=== PATIENT | male | born 1965 | race Two or more races ===

== ENCOUNTER 2016-07-17 21:20 | Inpatient (IN) | payer BC ==
[~2016-07-17] VITALS: Ht 167.6 cm; Wt 85.2 kg
[2016-07-17 21:30] VITALS: BP 140/86
[2016-07-17 22:00] VITALS: BP 140/86
[2016-07-17] MEDS ORDERED: MORPHINE SULF INJ 2 MG/ML SYRINGE 1ML IV PRN ×2 (23:30)
[2016-07-17] MEDS ORDERED: NITROGLYCERIN 0.4 MG SL TAB SL PRN ×2 (23:30)
[2016-07-18] MEDS ORDERED: RAMI10CA38 PO (01:02)
[2016-07-18] MEDS ORDERED: LEVO100T83 PO (01:02)
[2016-07-18] MEDS ORDERED: APIX5TAB PO (01:02)
[2016-07-18] MEDS ORDERED: ATOR1TAB PO (01:02)
[2016-07-18] MEDS ORDERED: GABA100C PO (01:02)
[2016-07-18] MEDS ORDERED: CHOL20009 PO (01:02)
[2016-07-18] MEDS ORDERED: CARV6.25 PO (01:02)
[2016-07-18] MEDS ORDERED: PANT40TA2 PO (01:02)
[2016-07-18] MEDS ORDERED: CYAN100T7 PO (01:02)
[2016-07-18] MEDS ORDERED: ASPI-231 PO (01:02)
[2016-07-18] MEDS ORDERED: GLIP-115 PO (01:02)
[2016-07-18] MEDS ORDERED: AMIO200T33 PO (01:02)
[2016-07-18 01:10] LABS: Albumin 2.8 g/dL (3.4-5.0); BUN/Creatinine Ratio 13.9; Bilirubin, Total 0.3 mg/dL (0.2-1.0); Calcium 7.9 mg/dL (8.5-10.1); Potassium 4.5 mmol/L (3.5-5.1)
[2016-07-18 01:13] LABS: Basophils # (auto) 0 uL; Basophils % (auto) 0.3 % (0.0-2.0); Eosinophils # (auto) 0.4 uL; Eosinophils % (auto) 3.3 % (0.0-7.0); Hematocrit 33.4 % (41.0-53.0); Hemoglobin 10.9 g/dL (13.5-17.5); Lymphocytes # (auto) 2.7 uL; Lymphocytes % (auto) 23.7 % (10.0-50.0); Mean Corpuscular Hemoglobin 28.5 pg (28.0-32.0); Mean Corpuscular Hgb Conc. 32.7 g/dL (32.0-36.0); Mean Corpuscular Volume 87.4 fL (80.0-100.0); Mean Platelet Volume 9.5 fL (7.4-10.4); Monocytes # (auto) 1.2 uL; Monocytes % (auto) 10.6 % (0.0-12.0); Neutrophils # (auto) 6.9 uL; Neutrophils % (auto) 62.1 % (37.0-80.0); Platelet Count (auto) 321 10^3/uL (140-450); Red Cell Distribution Width 15.7 % (11.6-16.0); White Blood Cell 11.2 10^3/uL (4.4-10.8)
[2016-07-18 01:23] LABS: INR 1.37 (0.9-1.15); Prothrombin Time 14.8 sec (9.37-12.3)
[2016-07-18 03:55] LABS: Partial Thromboplastin Time 158.5 sec (22.64-33.71)
[2016-07-18 05:00] VITALS: BP 142/89
[2016-07-18] MEDS: SODIUM CHLORIDE 0.9% 1,000 ML IV SCH ×2 (05:47→13:05)
[2016-07-18] MEDS: SODIUM CHLOR 0.9% PF (SALINE LOCK) 10ML VIAL IV SCH ×3 (05:48→21:49)
[2016-07-18] MEDS ORDERED: DEXTROSE (50%) 50ML SYRG IV PRN (06:30)
[2016-07-18] MEDS: LEVOTHYROXINE SODIUM 100 MCG TAB PO SCH (07:21)
[2016-07-18 09:00] VITALS: BP 128/66
[2016-07-18] MEDS ORDERED: CARVEDILOL 3.125 MG TAB PO SCH (10:00)
[2016-07-18] MEDS: AMIODARONE HCL 200 MG TAB PO SCH (10:14)
[2016-07-18] MEDS ORDERED: ENOXAPARIN SOD 40 MG/0.4 ML SYRINGE SC ONE ×2 (10:30→11:00)
[2016-07-18] MEDS ORDERED: RAMIPRIL 10 MG CAP PO ONE (11:00)
[2016-07-18] MEDS ORDERED: ASPirin 81 mg TAB PO ONE (11:00)
[2016-07-18] MEDS ORDERED: PANTOPRAZOLE 40 MG TAB PO ONE (11:00)
[2016-07-18] MEDS: ACCU-CHEK COMFORT CURVE STRIP VI SCH ×3 (11:29→23:45)
[2016-07-18] MEDS: InsuLIN REG 1unit/0.01ml Soln (100units/ml) SC SCH ×3 (11:29→23:46)
[2016-07-18 12:29] LABS: Urine RBC None Seen /hpf (0 - 3)
[2016-07-18 12:38] LABS: Urine Bilirubin Negative (Negative); Urine Blood Negative /uL (Negative); Urine Color Yellow (Yellow); Urine Glucose Normal (Normal); Urine Ketone Negative (Negative); Urine Nitrite Negative (Negative); Urine Squamous Epithelial Cell FEW /hpf (<5); Urine Urobilinogen Normal (Negative)
[2016-07-18 13:00] VITALS: BP 145/98
[2016-07-18] MEDS ORDERED: IOHEXOL 350 MG/ML 100ML IJ ONE (15:22)
[2016-07-18] MEDS ORDERED: LIDOCAINE 2%HCL (LOCAL ANESTH.) INJ 20ML MDV ONE (15:23)
[2016-07-18] MEDS ORDERED: fentaNYL CITRATE 100 MCG/2 ML VL ONE (16:19)
[2016-07-18] MEDS ORDERED: MIDAZOLAM HCL 1MG/1ML-2 ML VIAL ONE (16:19)
[2016-07-18] MEDS ORDERED: ANGIOMAX 250 MG VIAL IV ONE (16:50)
[2016-07-18] MEDS ORDERED: CLOPIDOGREL 300 MG TAB ONE (17:45)
[2016-07-18] MEDS ORDERED: CLOPIDOGREL 300 MG TAB PO ONE (18:00)
[2016-07-18] MEDS ORDERED: LORazepam 0.5 MG TAB PO PRN (18:15)
[2016-07-18] MEDS ORDERED: ZOLPIDEM TARTRATE 5 MG TAB PO PRN (18:15)
[2016-07-18] MEDS ORDERED: ACETAMINOPHEN 500 MG TAB PO PRN (18:15)
[2016-07-18] MEDS ORDERED: MORPHINE SULF INJ 2 MG/ML SYRINGE 1ML IV PRN (18:15)
[2016-07-18] MEDS ORDERED: ONDANSETRON HCL 4 MG/2 ML VIAL IV PRN (18:15)
[2016-07-18 20:00] VITALS: BP 129/70
[2016-07-18] MEDS: HYDROcodone-ACET 5/325MG TAB PO PRN (20:42)
[2016-07-18] MEDS: CARVEDILOL 3.125 MG TAB PO SCH (21:43)
[2016-07-18] MEDS: glipiZIDE 5 MG TAB PO SCH (21:45)
[2016-07-18 22:00] VITALS: BP 129/70
[2016-07-18] MEDS ORDERED: CARVEDILOL PO SCH (22:00)
[2016-07-18] MEDS ORDERED: ATORVASTATIN 20 MG TAB PO SCH ×2 (22:00)
[2016-07-19] MEDS: SODIUM CHLORIDE 0.9% 1,000 ML IV SCH (02:25)
[2016-07-19 05:30] VITALS: BP 112/70
[2016-07-19 05:43] LABS: Basophils # (auto) 0 uL; Basophils % (auto) 0.3 % (0.0-2.0); Eosinophils # (auto) 0.2 uL; Hematocrit 34.7 % (41.0-53.0); Hemoglobin 11.4 g/dL (13.5-17.5); Lymphocytes # (auto) 1.5 uL; Lymphocytes % (auto) 13.7 % (10.0-50.0); Mean Corpuscular Hemoglobin 28.5 pg (28.0-32.0); Mean Corpuscular Volume 86.3 fL (80.0-100.0); Mean Platelet Volume 8.7 fL (7.4-10.4); Monocytes # (auto) 1.1 uL; Monocytes % (auto) 10.3 % (0.0-12.0); Neutrophils % (auto) 73.7 % (37.0-80.0); Platelet Count (auto) 331 10^3/uL (140-450); Red Cell Distribution Width 15.5 % (11.6-16.0); White Blood Cell 10.8 10^3/uL (4.4-10.8)
[2016-07-19] MEDS: InsuLIN REG 1unit/0.01ml Soln (100units/ml) SC SCH ×2 (06:00→11:16)
[2016-07-19 06:07] LABS: BUN/Creatinine Ratio 18.5; Calcium 8.2 mg/dL (8.5-10.1); Potassium 4.2 mmol/L (3.5-5.1)
[2016-07-19] MEDS: LEVOTHYROXINE SODIUM 100 MCG TAB PO SCH (06:24)
[2016-07-19] MEDS: SODIUM CHLOR 0.9% PF (SALINE LOCK) 10ML VIAL IV SCH (06:30)
[2016-07-19] MEDS: ACCU-CHEK COMFORT CURVE STRIP VI SCH ×2 (06:30→11:16)
[2016-07-19] MEDS: HYDROcodone-ACET 5/325MG TAB PO PRN (07:51)
[2016-07-19 09:00] VITALS: BP 134/84
[2016-07-19] MEDS: AMIODARONE HCL 200 MG TAB PO SCH (09:06)
[2016-07-19] MEDS: glipiZIDE 5 MG TAB PO SCH (09:07)
[2016-07-19] MEDS ORDERED: GABAPENTIN 100 MG CAP PO SCH (10:00)
[2016-07-19] MEDS ORDERED: CLOPIDOGREL BISULFATE 75 MG TAB PO SCH (10:00)
[2016-07-19] MEDS ORDERED: ASPirin-EC 81 mg tab PO SCH (10:00)
[2016-07-19] MEDS ORDERED: AMIODARONE HCL 200 MG TAB PO SCH (10:00)
[2016-07-19] MEDS ORDERED: ASPirin 81 mg TAB PO SCH (10:00)
[2016-07-19] MEDS ORDERED: PANTOPRAZOLE 40 MG TAB PO SCH (10:00)
[2016-07-19] MEDS ORDERED: ENOXAPARIN SOD 40 MG/0.4 ML SYRINGE SC SCH (10:00)
[2016-07-19] MEDS ORDERED: RAMIPRIL 10 MG CAP PO SCH (10:00)
[2016-07-19] MEDS: CARVEDILOL 3.125 MG TAB PO SCH (10:29)
== END 2016-07-19 11:20 | disposition home or self-care (01) | DRG 246 ==
LOC: TELE-CENTR 21:20
PROVIDERS: ADMIT Internal Medicine; ATTEND Internal Medicine
PROC: 027034Z Dilation of Coronary Artery, One Artery with Drug-eluting Intraluminal Device, Percutaneous Approach (ICD-10-PCS; principal; 2016-07-18)
PROC: 4A023N7 Measurement of Cardiac Sampling and Pressure, Left Heart, Percutaneous Approach (ICD-10-PCS; 2016-07-18)
PROC: B2111ZZ Fluoroscopy of Multiple Coronary Arteries using Low Osmolar Contrast (ICD-10-PCS; 2016-07-18)
DX: I25.10 Atherosclerotic heart disease of native coronary artery without angina pectoris (principal); I25.42 Coronary artery dissection; E03.9 Hypothyroidism, unspecified; E11.21 Type 2 diabetes mellitus with diabetic nephropathy; E11.22 Type 2 diabetes mellitus with diabetic chronic kidney disease; E78.5 Hyperlipidemia, unspecified; F17.210 Nicotine dependence, cigarettes, uncomplicated; I12.9 Hypertensive chronic kidney disease with stage 1 through stage 4 chronic kidney disease, or unspecified chronic kidney disease; N18.3 Chronic kidney disease, stage 3 (moderate); Z79.01 Long term (current) use of anticoagulants; Z86.718 Personal history of other venous thrombosis and embolism; Z95.810 Presence of automatic (implantable) cardiac defibrillator
CPT/HCPCS: 36415; 71010; 80048; 80053; 81001; 82962; 83036; 84443; 84484; 85025; 85610; 85730; 87081; 92928; 93005; 93458; 99152; C1874; C1887; J1815; J2250